=== PATIENT | female | born 1935 | race Caucasian/White ===

== ENCOUNTER 2019-06-15 18:31 | Emergency (ER) | payer MEDICARE, OTHER ==
[~2019-06-15] VITALS: Ht 167.6 cm; Wt 60.5 kg
[2019-06-15 18:37] VITALS: Ht 167.6 cm; Wt 60.5 kg
[2019-06-15 19:42] LABS: BASOPHILS 0.2 % (0-2); EOSINOPHILS 0 % (0-7); HEMATOCRIT 27.3 % (36.0-48.0); HEMOGLOBIN 8.9 g/dL (12-16); IMMATURE GRANULOCYTES 0.5 % (0-5); LYMPHOCYTES 21.9 % (15-50); MCH 30.6 pg (26.0-34.0); MCHC 32.6 g/dL (31.0-37.0); MCV 93.8 fL (80.0-100.0); MEAN PLATELET VOLUME 11.6 fL (7.4-10.4); MONOCYTES 8.1 % (2-11); NEUTROPHILS 69.3 % (40-80); PLATELET COUNT 239 10x3/uL (130-400); RBC 2.91 10x6/uL (4.00-5.40); RDW 14.6 % (11.5-14.5); WBC 18.4 10x3/uL (4.8-10.8)
[2019-06-15 19:58] LABS: ANION GAP 11.6 mmol/L (8-16); CALCIUM 9.7 mg/dL (8.5-10.1); CREATININE - SERUM 0.8 mg/dL (0.6-1.3); POTASSIUM - SERUM 3.6 mmol/L (3.5-5.1)
[2019-06-15 20:04] LABS: ALBUMIN 3.1 g/dL (3.4-5.0); BILIRUBIN - TOTAL 0.42 mg/dL (0.2-1.3); PROTEIN - SERUM 5.7 g/dL (6.4-8.2)
[2019-06-15 21:31] LABS: APPEARANCE CLEAR (CLEAR); COLOR YELLOW (YELLOW)
[2019-06-15 21:32] LABS: BILIRUBIN NEGATIVE (NEGATIVE); GLUCOSE NEGATIVE (NEGATIVE); KETONE NEGATIVE (NEGATIVE); NITRITE NEGATIVE (NEGATIVE); PROTEIN TRACE mg/dL (NEGATIVE); UROBILINOGEN NORMAL (NORMAL)
[2019-06-15 21:34] LABS: BACTERIA FEW /hpf (NEGATIVE); EPITHELIAL CELLS 0-5 /hpf (0-5); RED CELLS - URINE OCC /hpf (0-5); WHITE CELLS - URINE 0-5 /hpf (NEGATIVE)
[2019-06-15 21:47] LABS: CKMB 1.1 U/L (0.0-3.6); CREATINE KINASE 20 UL (21-215); MAGNESIUM - SERUM 2.1 mg/dL (1.8-2.4); PRO BNP 3536 pg/mL (0-450)
[2019-06-15 22:03] LABS: TROPONIN-I 0.182 ng/mL (0.000-0.060)
[2019-06-16 00:48] VITALS: BP 121/68
[2019-07-05 14:33] VITALS: Ht 167.6 cm; Wt 60.5 kg
== END 2019-06-16 00:48 | disposition other institution (70) ==
LOC: D.ER 18:31
PROVIDERS: Emergency Medicine; Family Medicine
DX: K92.2 Gastrointestinal hemorrhage, unspecified (principal); I11.0 Hypertensive heart disease with heart failure; I71.4 Abdominal aortic aneurysm, without rupture; I50.9 Heart failure, unspecified

== ENCOUNTER 2019-06-30 12:53 | Inpatient (IN) | payer MEDICARE, OTHER ==
[~2019-06-30] VITALS: Ht 167.6 cm; Wt 61.7 kg
[2019-06-30 14:10] LABS: BASOPHILS 0.2 % (0-2); EOSINOPHILS 0.3 % (0-7); HEMATOCRIT 28.1 % (36.0-48.0); HEMOGLOBIN 8.7 g/dL (12-16); IMMATURE GRANULOCYTES 0.2 % (0-5); LYMPHOCYTES 16.6 % (15-50); MCH 29.5 pg (26.0-34.0); MCV 95.3 fL (80.0-100.0); MEAN PLATELET VOLUME 10.8 fL (7.4-10.4); MONOCYTES 8.9 % (2-11); NEUTROPHILS 73.8 % (40-80); PLATELET COUNT 218 10x3/uL (130-400); RBC 2.95 10x6/uL (4.00-5.40); RDW 16.4 % (11.5-14.5)
[2019-06-30 14:22] LABS: CALC OSMOLALITY 279 mosm/kg (275-300); CALCIUM 9.2 mg/dL (8.5-10.1); CARBON DIOXIDE 28.5 mmol/L (21.0-32.0); CHLORIDE - SERUM 105 mmol/L (98-107); CREATININE - SERUM 0.6 mg/dL (0.6-1.3); GLUCOSE 85 mg/dL (74-106); POTASSIUM - SERUM 4.3 mmol/L (3.5-5.1); SODIUM 142 mmol/L (136-145); UREA NITROGEN 6 mg/dL (7-18); eGFR NON AFRICAN AMERICAN > 90 mL/min (90-120)
[2019-06-30 14:25] LABS: APTT 32.5 SECONDS (22.8-39.4); INR 1.53 (0.85-1.17); PROTIME 17.8 SECONDS (11.6-15.0)
[2019-06-30 14:46] LABS: ALBUMIN 3.1 g/dL (3.4-5.0); ALKALINE PHOSPHATASE 83 U/L (46-116); ALT (SGPT) 24 U/L (10-68); BILIRUBIN - TOTAL 0.72 mg/dL (0.2-1.3); CKMB 1.1 U/L (0.0-3.6); CREATINE KINASE 28 UL (21-215); PRO BNP 5453 pg/mL (0-450); PROTEIN - SERUM 5.6 g/dL (6.4-8.2)
[2019-06-30 14:53] LABS: TROPONIN-I 0.232 ng/mL (0.000-0.060)
--- NOTE | 2019-06-30 18:27 | NUR ---
URINE SAMPLE SENT TO LAB
[2019-06-30 18:36] LABS: APPEARANCE CLEAR (CLEAR); BILIRUBIN NEGATIVE (NEGATIVE); COLOR YELLOW (YELLOW); GLUCOSE NEGATIVE (NEGATIVE); KETONE NEGATIVE (NEGATIVE); NITRITE NEGATIVE (NEGATIVE); PROTEIN NEGATIVE (NEGATIVE); UROBILINOGEN NORMAL (NORMAL)
[2019-06-30 18:38] LABS: BACTERIA FEW /hpf (NEGATIVE); EPITHELIAL CELLS 0-5 /hpf (0-5); RED CELLS - URINE 0-5 /hpf (0-5)
--- NOTE | 2019-06-30 20:00 | NUR ---
RECEIVED REPORT FROM SMITA BEDOLLA. PATIENT ARRIVED VIA STRETCHER. PATIENT IS ALERT AND ORIENTED. RESPIRATIONS ARE EVEN AND UNLABORED. PATIENT REMAINS ON 3.5L NC. NO S/S OF DISTRESS. NO C/O PAIN. CALL LIGHT WITHIN REACH
[2019-06-30] MEDS ORDERED: PROTONIX40 MG PO (20:09)
[2019-06-30] MEDS ORDERED: FUROSEMIDE20 MG PO (20:09)
[2019-06-30] MEDS ORDERED: TOPROL XL50 MG PO (20:10)
[2019-06-30] MEDS ORDERED: CENTRUM SILVER1 EAC3 PO (20:11)
[2019-06-30] MEDS ORDERED: BAYER CHEWABLE81 MG PO (20:12)
[2019-06-30] MEDS ORDERED: EZFE 200200 MG PO (20:12)
[2019-06-30 23:06] VITALS: BP 125/53; BMI 21.8
[2019-07-01] VITALS: BP 119/71
[2019-07-01 04:30] VITALS: BP 111/72
[2019-07-01 06:34] LABS: BASOPHILS 0.2 % (0-2); EOSINOPHILS 1.7 % (0-7); HEMATOCRIT 29.1 % (36.0-48.0); HEMOGLOBIN 8.8 g/dL (12-16); IMMATURE GRANULOCYTES 0.3 % (0-5); LYMPHOCYTES 9.1 % (15-50); MCHC 30.2 g/dL (31.0-37.0); MEAN PLATELET VOLUME 11.2 fL (7.4-10.4); MONOCYTES 8.8 % (2-11); NEUTROPHILS 79.9 % (40-80); PLATELET COUNT 195 10x3/uL (130-400); RBC 3.03 10x6/uL (4.00-5.40); RDW 16.5 % (11.5-14.5)
[2019-07-01 06:45] LABS: WBC 6.5 10x3/uL (4.8-10.8)
[2019-07-01 07:01] LABS: CALC OSMOLALITY 283 mosm/kg (275-300); CALCIUM 8.4 mg/dL (8.5-10.1); CARBON DIOXIDE 33.7 mmol/L (21.0-32.0); CHLORIDE - SERUM 105 mmol/L (98-107); CREATININE - SERUM 0.6 mg/dL (0.6-1.3); GLUCOSE 83 mg/dL (74-106); MAGNESIUM - SERUM 2.1 mg/dL (1.8-2.4); PHOSPHOROUS 4.1 mg/dL (2.5-4.9); SODIUM 144 mmol/L (136-145); UREA NITROGEN 6 mg/dL (7-18); eGFR NON AFRICAN AMERICAN > 90 mL/min (90-120)
[2019-07-01 07:04] LABS: POTASSIUM - SERUM 3.2 mmol/L (3.5-5.1)
[2019-07-01 09:08] VITALS: BP 127/71
--- NOTE | 2019-07-01 12:15 | NUR ---
TELEMETRY CAF. RESP UL ON . UP IN CHAIR FOR LUNCH. CALL LIGHT IN REACH. WILL CONT. PLAN OF CARE.
[2019-07-01 12:27] VITALS: BP 112/50
[2019-07-01 16:00] LABS: CKMB 0.7 U/L (0.0-3.6); CREATINE KINASE 26 UL (21-215)
[2019-07-01 16:02] LABS: TROPONIN-I 0.148 ng/mL (0.000-0.060)
[2019-07-01 16:31] LABS: T4 THYROXIN - FREE 1.12 ng/dL (0.76-1.46); THYROID STIMULATING HORMONE 2.4 uIU/mL (0.36-3.74)
--- NOTE | 2019-07-01 16:44 | NUR ---
ELEVATED TROPONIN CALLED TO DR. RODRIGUEZ. EKG COMPLETED. WILL CONT. PLAN OF CARE.
[2019-07-01 17:19] VITALS: BP 114/63
--- NOTE | 2019-07-01 19:49 | NUR ---
RECEIVED BEDSIDE REPORT. PATIENT IS ALERT AND ORIENTED, RESTING COMFORTABLY IN BED. RESPIRATIONS ARE EVEN AND UNLABORED. NO S/S OF DISTRESS. NO C/O PAIN. CALL LIGHT WITHIN REACH. WILL CPOC.
[2019-07-01 20:35] LABS: CKMB 0.7 U/L (0.0-3.6); CREATINE KINASE 18 UL (21-215)
[2019-07-01 20:38] LABS: TROPONIN-I 0.136 ng/mL (0.000-0.060)
[2019-07-01 20:39] VITALS: BP 123/61
[2019-07-02 00:15] VITALS: BP 104/47
[2019-07-02 01:56] LABS: BASOPHILS 0.2 % (0-2); EOSINOPHILS 4.3 % (0-7); HEMOGLOBIN 7.8 g/dL (12-16); IMMATURE GRANULOCYTES 0.2 % (0-5); LYMPHOCYTES 16.6 % (15-50); MCH 28.7 pg (26.0-34.0); MCV 95.6 fL (80.0-100.0); MEAN PLATELET VOLUME 10.6 fL (7.4-10.4); MONOCYTES 11.4 % (2-11); NEUTROPHILS 67.3 % (40-80); PLATELET COUNT 157 10x3/uL (130-400); RBC 2.72 10x6/uL (4.00-5.40); RDW 15.9 % (11.5-14.5); WBC 5.6 10x3/uL (4.8-10.8)
--- NOTE | 2019-07-02 02:13 | NUR ---
PATIENT RESTING COMFORTABLY IN BED. RESPIRATIONS ARE EVEN AND UNLABORED. NO S/S OF DISTRESS. CALL LIGHT WITHIN REACH.
[2019-07-02 02:40] LABS: CALCIUM 8.3 mg/dL (8.5-10.1); CHLORIDE - SERUM 105 mmol/L (98-107); CKMB 0.4 U/L (0.0-3.6); CREATINE KINASE 23 UL (21-215); CREATININE - SERUM 0.6 mg/dL (0.6-1.3); GLUCOSE 95 mg/dL (74-106); MAGNESIUM - SERUM 2.1 mg/dL (1.8-2.4); PHOSPHOROUS 3.7 mg/dL (2.5-4.9); POTASSIUM - SERUM 3.9 mmol/L (3.5-5.1); SODIUM 144 mmol/L (136-145); UREA NITROGEN 8 mg/dL (7-18); eGFR NON AFRICAN AMERICAN > 90 mL/min (90-120)
[2019-07-02 02:41] LABS: CALC OSMOLALITY 284 mosm/kg (275-300); TROPONIN-I 0.137 ng/mL (0.000-0.060)
[2019-07-02 04:45] VITALS: BP 95/59
[2019-07-02 08:00] VITALS: BP 132/72
[2019-07-02 10:55] VITALS: BP 119/51
--- NOTE | 2019-07-02 15:15 | NUR ---
TELEMETRY CAF. NO NEEDS OR C/O VOICED. CALL LIGHT IN REACH. WILL MONITOR.
--- NOTE | 2019-07-02 16:43 | MORECARE ---
CASE MANAGEMENT DISCHARGE SUMMARY PATIENT: SVEN MICHAEL UNIT: [id number] ADM DATE: 06/30/19 AGE: 84 : 33 SEX: F ROOM/BED: D.2120 AUTHOR: PARESH GALO PHYSICIAN: REFERRING PHYSICIAN: ALEX LEE MD DATE OF SERVICE: 07/02/19 Discharge Plan Patient Name: SVEN MICHAEL Facility: [facility]:[place] : 1935 Planned Disposition: Anticipated Discharge Date: Discharge Date: Expected LOS: Initial Reviewer: [email or web address] Initial Review Date: 07/02/2019 Generated: 07/02/19 5:42 pm Comments DCP- Discharge Planning Updated by [id number]: Edin Rutherford on 07/02/19 3:[address] Patient Name: SVEN MICHAEL Encounter No: [id number] : 1935 Primary Insurance: MEDICARE A & B Anticipated DC Date: Planned Disposition: DISCHARGE PLANNING note: CM ATTEMPTED TO MEET WITH PT FOR INITIAL ASSESSMENT OF DISCHARGE NEEDS. PT WAS SLEEPING SOUNDLY WITH NO FAMILY PRESENT IN ROOM AT APPROXIMATELY 1635 HOURS. CM TO ATTEMPT ASSESSMENT OF PT AT A LATER TIME. Edin Rutherford, CASE MANAGEMENT Patient Name: SVEN MICHAEL Page [id number] at 1643 All edits/amendments must be made on the electronic document DICTATION DATE: 07/02/191641 GREIGE MENDER: SRINIVAS 07/02/19 164 RPT#: [id number] DC DATE: STATUS: ADM IN [place] [address] [place] [address] END OF REPORT
[2019-07-02 18:05] VITALS: BP 113/59
--- NOTE | 2019-07-02 19:23 | NUR ---
RECEIVED UP IN BED WITH EYES OPEN AND TV ON. ALERT AND ORIENTED X4. REQUIRES SBA WITH AMBULATION. O2@ 2 LITERS PER N/C. IV TO RIGHT WRIST SL. DENIES ANY NEEDS AT THIS TIME.
[2019-07-02 20:30] VITALS: BP 117/57
[2019-07-03] VITALS (7 sets, daily range): BP systolic 108–133; BP diastolic 52–66
[2019-07-03 05:27] LABS: BASOPHILS 0.2 % (0-2); EOSINOPHILS 2.6 % (0-7); HEMATOCRIT 26.4 % (36.0-48.0); HEMOGLOBIN 8.2 g/dL (12-16); IMMATURE GRANULOCYTES 0.2 % (0-5); LYMPHOCYTES 22.4 % (15-50); MCH 29.5 pg (26.0-34.0); MCHC 31.1 g/dL (31.0-37.0); MEAN PLATELET VOLUME 11.4 fL (7.4-10.4); NEUTROPHILS 66.6 % (40-80); PLATELET COUNT 149 10x3/uL (130-400); RBC 2.78 10x6/uL (4.00-5.40); RDW 15.8 % (11.5-14.5); WBC 5.8 10x3/uL (4.8-10.8)
[2019-07-03 06:03] LABS: CALC OSMOLALITY 282 mosm/kg (275-300); CALCIUM 8.6 mg/dL (8.5-10.1); CARBON DIOXIDE 34.3 mmol/L (21.0-32.0); CHLORIDE - SERUM 105 mmol/L (98-107); CREATININE - SERUM 0.6 mg/dL (0.6-1.3); GLUCOSE 110 mg/dL (74-106); MAGNESIUM - SERUM 2.1 mg/dL (1.8-2.4); PHOSPHOROUS 3.2 mg/dL (2.5-4.9); POTASSIUM - SERUM 3.6 mmol/L (3.5-5.1); SODIUM 142 mmol/L (136-145); UREA NITROGEN 10 mg/dL (7-18); eGFR NON AFRICAN AMERICAN > 90 mL/min (90-120)
--- NOTE | 2019-07-03 07:15 | NUR ---
RECEIVED PT IN BED AAOX4 RESP UNLABORED SKIN W/D DENIES ANY NEEDS OR DISCOMFORT AT THIS TIME
--- NOTE | 2019-07-03 19:25 | NUR ---
INITIAL ROUNDS COMPLETED. PT DENIES ANY DISCOMFORT. CALL LIGHT WITHIN REACH.
--- NOTE | 2019-07-03 23:02 | NUR ---
ASSESSMENT COMPLETED AT 1940 HRS. VSS. CAF PER CM HR 81. O2 2LNC. ALERT AND ORIENTED TO PERSON, PLACE AND TIME. BECKWITH. IV TO RAC AND R WRIST SL. LUGS DIMINISHED IN BASES BILAT. TYLENOL 650MG PO GIVEN AT 2014 FOR C/O LOWER BACK PAIN. PM MEDS IGVEN. IV TO R WRIST INFILTRATED. DC'D WITH CATHETER INTACT. PT CURRENTLY RESTING WITH EYES CLOSED. RESP EVEN AND REGULAR. SR UP X2, CALL LIGHT WITHIN REACH.
--- NOTE | 2019-07-04 01:19 | NUR ---
PT RESTING WITH EYES CLOSED. RESP EVEN AND REGULAR. SR UP X2, CALL LIGHT WITHIN REACH.
--- NOTE | 2019-07-04 03:16 | NUR ---
PT AWAKE; STATES BACK PAIN LESS. CALL LIGHT WITHIN REACH.
--- NOTE | 2019-07-04 04:08 | NUR ---
PT RESTING WITH EYES CLOSED. RESP EVEN AND REGULAR. SR UPX2, CALL LIGHT WITHIN REACH.
[2019-07-04 05:31] LABS: BASOPHILS 0.2 % (0-2); HEMATOCRIT 26.8 % (36.0-48.0); HEMOGLOBIN 8.2 g/dL (12-16); IMMATURE GRANULOCYTES 0.2 % (0-5); LYMPHOCYTES 14.1 % (15-50); MCH 28.8 pg (26.0-34.0); MCHC 30.6 g/dL (31.0-37.0); MONOCYTES 7.7 % (2-11); NEUTROPHILS 75.8 % (40-80); PLATELET COUNT 144 10x3/uL (130-400); RBC 2.85 10x6/uL (4.00-5.40); RDW 15.8 % (11.5-14.5); WBC 6.5 10x3/uL (4.8-10.8)
[2019-07-04 05:47] LABS: CALC OSMOLALITY 273 mosm/kg (275-300); CALCIUM 8.7 mg/dL (8.5-10.1); CARBON DIOXIDE 31.8 mmol/L (21.0-32.0); CHLORIDE - SERUM 103 mmol/L (98-107); CREATININE - SERUM 0.6 mg/dL (0.6-1.3); GLUCOSE 95 mg/dL (74-106); POTASSIUM - SERUM 3.8 mmol/L (3.5-5.1); SODIUM 138 mmol/L (136-145); UREA NITROGEN 8 mg/dL (7-18); eGFR NON AFRICAN AMERICAN > 90 mL/min (90-120)
--- NOTE | 2019-07-04 06:13 | NUR ---
VSS THROUGHOUT NIGHT. CAF PER CM. PT STASTED TYLENOL ALLEVIATES BACK PAIN. NEEDS MET; WILL CONTINUE TO MONITOR.
--- NOTE | 2019-07-04 07:28 | NUR ---
ALERT AND ORIENTED. DENIES ANY NEEDS. RIGHT AC SL, PATENT. O2 AT 2 L/M PER NC. LUNGS DIMISHED. TELEMERTY SHOWS AFIB.. SR UP WITH CALL LIGHT IN REAC
[2019-07-04 09:14] VITALS: BP 118/58
[2019-07-04 12:47] VITALS: BP 118/54
--- NOTE | 2019-07-04 13:37 | NUR ---
I have reviewed this patient and I concur with the Shift Assessment completed by the Licensed Practical Nurse today this shift.
--- NOTE | 2019-07-04 14:40 | NUR ---
VISITOR AT BEDSIDE, DENIES ANY NEEDS. WILL MONITOR
--- NOTE | 2019-07-04 15:15 | NUR ---
HUMIDIFICATION PLACED ON OXYGEN AT THIS TIME PER .
[2019-07-04 18:21] VITALS: BP 117/52
--- NOTE | 2019-07-04 19:17 | NUR ---
INITIAL ROUNDS COMPLETED. PT DENIES ANY DISCOMFORT. CALL LIGHT WITHIN REACH.
[2019-07-04 20:00] VITALS: BP 129/69
--- NOTE | 2019-07-04 22:21 | NUR ---
HIBICLENS SHOWER DONE, BED LINENS CHANGED AT 2000 HRS. PT TOLERATED ACTIVITY WELL. ASSESSMENT COMPLETED AT 2015 HRS. VSS. CAF PER CM HR 78. ALERT AND ORIENTED TO PERSON, PLACE AND TIME. BECKWITH. IV TO LFA SL. O2 2LNC. LUNGS DIMINISHED IN BASES BILAT. PETECHIA NOTED TO L LOWER LEG. PALPABLE PERIPHERAL PULSES. PM MEDS GIVEN INCLUDING TYLENOL 650 MG PO FOR C/O BACK ACHE 02/24. PT CURRENTLY RESTING WITH EYES CLOSED. RESP EVEN AND REGULAR. SR UP X2, CALL LIGHT WITHIN REACH.
[2019-07-05] VITALS: BP 128/61
--- NOTE | 2019-07-05 00:35 | NUR ---
PT RESTING WITH EYES CLOSED. RESP EVEN AND REGULAR. SR UP X2, CALL LIGHT WITHIN REACH.
--- NOTE | 2019-07-05 01:49 | NUR ---
PT RESTING WITH EYES CLOSED. RESP EVEN AND REGULAR. SR UP X2, CALL LIGHT WITHIN REACH.
--- NOTE | 2019-07-05 03:44 | NUR ---
PT STATES DOES NOT HAVE A BACKACHE AT THIS TIME. CALL LIGHT WITHIN REACH.
[2019-07-05 04:00] VITALS: BP 132/71
[2019-07-05 05:29] LABS: BASOPHILS 0.7 % (0-2); EOSINOPHILS 2.1 % (0-7); HEMATOCRIT 27.2 % (36.0-48.0); HEMOGLOBIN 8.3 g/dL (12-16); IMMATURE GRANULOCYTES 0.2 % (0-5); LYMPHOCYTES 22.5 % (15-50); MCH 28.7 pg (26.0-34.0); MCHC 30.5 g/dL (31.0-37.0); MCV 94.1 fL (80.0-100.0); MONOCYTES 10.7 % (2-11); NEUTROPHILS 63.8 % (40-80); PLATELET COUNT 128 10x3/uL (130-400); RBC 2.89 10x6/uL (4.00-5.40); RDW 15.8 % (11.5-14.5); WBC 5.3 10x3/uL (4.8-10.8)
[2019-07-05 05:49] LABS: CALC OSMOLALITY 281 mosm/kg (275-300); CALCIUM 8.9 mg/dL (8.5-10.1); CHLORIDE - SERUM 106 mmol/L (98-107); CREATININE - SERUM 0.5 mg/dL (0.6-1.3); GLUCOSE 93 mg/dL (74-106); SODIUM 142 mmol/L (136-145); UREA NITROGEN 9 mg/dL (7-18); eGFR NON AFRICAN AMERICAN > 90 mL/min (90-120)
--- NOTE | 2019-07-05 05:52 | NUR ---
VSS THROUGHOUT NIGHT. CAF PER CM. PT STATES TYLENOL ALLEVIATED LOPEZ. NEEDS MET; WILL CONTINUE TO MONITOR.
--- NOTE | 2019-07-05 09:28 | EC ---
PATIENT:SVEN MICHAEL DATE OF SERVICE: 06/30/19 SEX: F MEDICAL RECORD: [id number] DATE OF : [birth year] LOCATION:D.M2 D.212 AGE OF PATIENT: 84 ADMISSION DATE: 06/30/19 REFERRING PHYSICIAN: INTERPRETING PHYSICIAN: AUGIE ENRIQUEZ MD ECHOCARDIOGRAM REPORT ECHO CHARGES 4 ECHO COMPLETE Date: 07/01/19 CLINICAL DIAGNOSIS: CHF HX AVR ()BOVINE) 18 YEARS AGO. ECHOCARDIOGRAPHIC MEASUREMENTS (adult normal given) AC root (d.<3.7cm) cm LV Septum d (<1.2 cm> 1.3 cm Valve Excursion cm LV Septum (systole) 1.4 cm Left Atria (s.<4.0cm> 5.5 cm LVPW d(<1.2cm) 1.7 cm RV (d.<2.3cm) 3.5 cm LVPW (sytole) 1.9 cm LV diastole(<5.6CM) 5.2 cm MV E-F(>70mm/sec) cm LV systole 3.4 cm LVOT Diameter 1.4 cm MV exc.(>10mm) cm Est.ejection fraction (50-75%) % DOPPLER: LVIT cm/sec A 65.0 cm/sec E 147 cm/sec LA cm/sec RVSP 65 mmHg LVOT 216 cm/sec AOP1/2T m/s Asc. Ao 561 cm/sec RVOT cm/sec RA cm/sec PA cm/sec AV Gradient Peak 126 mmHg AV Mean 77.51mmHg AV Area 0.6 cm MV Gradient Peak 15.64mmHg MV Mean 5.08 mmHg MV Area cm COMMENTS: Fish And Wildlife Warden: Diana WILSON Furnace Checker: 1 Dr. Enriquez TAPE# PACS Pericardial Effusion N DATE OF SERVICE: 07/01/2019 FINDINGS: 1. Left ventricular chamber size is within normal limits. Left ventricular systolic function is normal at 65%. 2. Left ventricular hypertrophy is present, concentric with no evidence of outflow tract hypertrophy. 3. Left atrium is enlarged at 5.5 cm. Right atrium and right ventricular chamber sizes are as well mildly dilated. 4. 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 The remaining valvular structures have normal structure and motion. 5. Doppler interrogation elsewise reveals moderate mitral regurgitation, moderate tricuspid regurgitation, no other valvular insufficiency or stenosis. Pulmonary systolic pressure is estimated at 65 mmHg. 6. No evidence of pericardial effusion or left ventricular thrombus. TRANSINT:[id number] Voice Confirmation ID: [id number] DOCUMENT ID: [id number] AUGIE ENRIQUEZ MD at 0928 CC: [id number] DICTATION DATE: 07/01/19 1503 MANAGER BUSINESS PLANNING: 07/01/19 1629 ADM IN [facility] [address] [id number]
--- NOTE | 2019-07-05 09:37 | NUR ---
AM MEDS GIVEN AT THIS TIME. PT A/O X4, A LITTLE SOB ON 2L NC. INSTRUCTED PT TO TAKE IN DEEP BREATHS IN THROUGH HER NOSE AND OUT HER MOUTH. MONITOS SHOWING CAF WITH RATE OF 79. LT FA IV SL. ALSO GAVE 650MG OF TYLENOL FOR PAIN LEVEL OF 6/10. PT DENIES ANY OTHER NEEDS AT THIS TIME. CALL LIGHT IN REACH, NAD NOTED, WILL CONTINUE TO MONITOR.
[2019-07-05 11:13] VITALS: BP 131/71; BP 151/50
[2019-07-05 14:33] VITALS: Ht 167.6 cm; Wt 61.7 kg
[2019-07-05 14:57] VITALS: BP 131/62
[2019-07-05] MEDS ORDERED: TOPROL XL25 MG PO (15:38)
--- NOTE | 2019-07-05 15:43 | MORECARE ---
CASE MANAGEMENT DISCHARGE SUMMARY PATIENT: SVEN MICHAEL UNIT: [id number] ADM DATE: 06/30/19 AGE: 84 : 33 SEX: F ROOM/BED: D.2120 AUTHOR: PARESH GALO PHYSICIAN: REFERRING PHYSICIAN: ALEX LEE MD DATE OF SERVICE: 07/05/19 Discharge Plan Patient Name: SVEN MICHAEL Facility: [facility]:[place] : 1935 Planned Disposition: Anticipated Discharge Date: Discharge Date: Expected LOS: Initial Reviewer: [email or web address] Initial Review Date: 07/02/2019 Generated: 07/05/19 4:43 pm Comments DCP- Discharge Planning Updated by [id number]: Essie Marquez on 07/05/19 2:[address] @ 1308 SVEN JEWELL APN CAME TO DESK TO LET US KNOW THAT [facility] IS WORKING ON TRANSFERRING PATIENT. @1310, CALLED GRAEME HERANNDEZTABLE GAMES SUPERVISOR AND RECEIVED ADMIN AUTH UNDER DIANE FOR TRANSFER. @ 1530, SPOKE WITH LEVI AT THE TRANSFER CENTER. THE PATIENT HAS BEEN ACCEPTED TO [facility] IN [place]. DR ALVARO TELLEZ ACCEPTING. SHE WILL GO TO ROOM 917. REPORT TO BE CALLED TO [phone]. I HAVE LET THE QA ARCHITECT KNOW AND HAVE SENT A MESSAGE TO SVEN JEWELL APN SO WE CAN GET DISCHARGE ORDERS. DCP- Discharge Planning Updated by [id number]: Edin Rutherford on 07/02/19 3:[address] Patient Name: SVEN MICHAEL Encounter No: [id number] : 1935 Primary Insurance: MEDICARE A & B Anticipated DC Date: Planned Disposition: DISCHARGE PLANNING note: CM ATTEMPTED TO MEET WITH PT FOR INITIAL ASSESSMENT OF DISCHARGE NEEDS. PT WAS SLEEPING SOUNDLY WITH NO FAMILY PRESENT IN ROOM AT APPROXIMATELY 1635 HOURS. CM TO ATTEMPT ASSESSMENT OF PT AT A LATER TIME. Edin Rutherford CASE MANAGEMENT Last DP export: 07/02/19 3:43 Patient Name: SVEN MICHAEL Page [phone] at 1543 All edits/amendments must be made on the electronic document DICTATION DATE: 07/05/19 154 THIOKOL OPERATOR: SRINIVAS 07/05/19 154 RPT#: [id number] DC DATE: STATUS: ADM IN [facility] [address] [place] [address] END OF REPORT
--- NOTE | 2019-07-05 16:33 | NUR ---
REPORT CALLED TO KATELYNN BEDOLLA AT [facility] WHO WILL BE TAKING CARE OF PT.
--- NOTE | 2019-07-05 16:57 | NUR ---
CALLED [facility] AND SPOKE WITH LIANNE, WHO INFORMED THIS NURSE THAT IT WOULD BE ABOUT AN HOUR BEFORE THEY COULD COME PICK PT UP.
--- NOTE | 2019-07-05 17:03 | NUR ---
PROVIDED VERBAL AND WRITTEN DISCHARGE TEACHING TO PT, WHO VERBALIZED UNDERSTANDING REGARDING TEACHING.
--- NOTE | 2019-07-05 17:05 | MORECARE ---
CASE MANAGEMENT DISCHARGE SUMMARY PATIENT: SVEN MICHAEL UNIT: [id number] ADM DATE: 06/30/19 AGE: 84 : 33 SEX: F ROOM/BED: D.1344 AUTHOR: IRAJ,DOC PHYSICIAN: REFERRING PHYSICIAN: ALEX LEE MD DATE OF SERVICE: 07/05/19 Discharge Plan Patient Name: SVEN MICHAEL Facility: [facility]:[place] : 1935 Planned Disposition: Acute Care Hospital Anticipated Discharge Date: 07/05/19 Discharge Date: Expected LOS: 5 Initial Reviewer: [email or web address] Initial Review Date: 07/02/2019 Generated: 07/05/19 6:04 pm Comments DCP- Discharge Planning Updated by [email or web address]: Edin Rutherford on 07/05/19 4:[address] Patient Name: SVEN MICHAEL Admission Status: ER Accout number: [id number] Admission Date: 06-30-2019 : 1935 Admission Diagnosis: Attending: ALEX LEE Current LOS: 5 Anticipated DC Date: 07-05-2019 Planned Disposition: Acute Care Hospital Primary Insurance: MEDICARE A & B PLANNED EXERNAL PROVIDER: [facility] Discharge Planning Comments: CM SPOKE TO GWEN JEWELL DURING MULTIDISCIPLINARY TEAM MEETING, NOTES INDICATED PT WILL TRANSFER FOR "TAVR" AT [facility]. CM MET WITH PT IN ROOM TO DISCUSS DISCHARGE PLANNING AND NEEDS. PT REPORTS LIVING AT HOME INDEPENDENTLY AND ALONE. PT HAS WALKER WITH SEAT AND CANE WITH NO MEDICAL EQUIPMENT PROVIDER PREFERENCE. PT HAS HOME HEALTH WITH [facility], BUT THEY DID NOT ADMIT DUE TO PT ADMITTING BACK TO THE HOSPITAL. PT HAS NO OTHER OUTSIDE SERVICES ASSISTING IN THE HOME. CM DISCUSSED AVAILABILITY OF HOME HEALTH, REHAB SERVICES AND MEDICAL EQUIPMENT. PT DENIES DISCHARGE NEEDS AND IS WILLING FOR TRANSFER TO [facility] AND HAS DISCUSSED THIS WITH HER DOCTOR. CM SPOKE TO GRAEME DASH WHO INFORMED CM THAT PT HAS BEEN ACCEPTED AT [facility] AND HAS BED NOW. CM NOTIFIED PT WHO ASKED CM TO CALL HER NIECE, DIRK MICHAEL. CM CALLED AND NOTIFIED DIRK WHO INFORMED CM THAT SHE WILL BE RIGHT UP TO HELP PT GET HER BELONGINGS GATHERED UP FOR TRANSFER TO [facility]. Roll Carrier: Edin Rutherford DCP- Discharge Planning Updated by [id number]: Essie Dash on 07/05/19 2:[address] @ 1308 SVEN JEWELL APN CAME TO DESK TO LET US KNOW THAT [facility] IS WORKING ON TRANSFERRING PATIENT. @1310, CALLED GRAEME HERNANDEZCRATING AND MOVING ESTIMATOR AND RECEIVED ADMIN AUTH UNDER DIANE FOR TRANSFER. @ 1530, SPOKE WITH LEVI AT THE TRANSFER CENTER. THE PATIENT HAS BEEN ACCEPTED TO [facility] IN [place]. DR ALVARO TELLEZ ACCEPTING. SHE WILL GO TO ROOM 917. REPORT TO BE CALLED TO [phone]. I HAVE LET THE RESEARCH INSTRUCTOR KNOW AND HAVE SENT A MESSAGE TO SVEN JEWELL APN SO WE CAN GET DISCHARGE ORDERS. DCP- Discharge Planning Updated by [id number]: Edin Rutherford on 07/02/19 3:[address] Patient Name: SVEN MICHAEL Encounter No: [id number] : 1935 Primary Insurance: MEDICARE A & B Anticipated DC Date: Planned Disposition: DISCHARGE PLANNING note: CM ATTEMPTED TO MEET WITH PT FOR INITIAL ASSESSMENT OF DISCHARGE NEEDS. PT WAS SLEEPING SOUNDLY WITH NO FAMILY PRESENT IN ROOM AT APPROXIMATELY 1635 HOURS. CM TO ATTEMPT ASSESSMENT OF PT AT A LATER TIME. Edin Rutherford, CASE MANAGEMENT DCPIA - Discharge Planning Initial Assessment Updated by [email or web address]: Edin Rutherford on 07/05/19 4:59 pm * Is the patient Alert and Oriented? Yes * How many steps to enter\\exit or inside your home? NONE * PCP DR. MARLIN PELLETIER IN [place] * Pharmacy [facility] IN [place] OR [facility] * Preadmission Environment Home Alone * ADLs Independent * Equipment Cane Rolling Walker * Other Equipment NO MEDICAL EQUIPMENT PROVIDER PREFERENCE * List name and contact numbers for known caregivers / representatives who currently or will assist patient after discharge: MARAL LUIS, * Verbal permission to speak to the caregivers and representatives has been obtained from the patient. Yes * Community resources currently utilized Home Health * Please name any agencies selected above. [facility] NEVER ADMITTED DUE TO RE HOSPITALIZATION. * Additional services required to return to the preadmission environment? No * Can the patient safely return to the preadmission environment? Yes * Has this patient been hospitalized within the prior 30 days at any hospital? Yes Last DP export: 07/05/19 2:43 Patient Name: SVEN MICHAEL Page 35228 at 1705 All edits/amendments must be made on the electronic document DICTATION DATE: 07/05/191703 PUBLIC RELATIONS PROFESSIONAL: SRINIVAS 07/05/191703 RPT#: [id number] DC DATE: STATUS: ADM IN [facility] [address] [place] [address] END OF REPORT
--- NOTE | 2019-07-05 17:35 | NUR ---
RECEIVED CALL FROM LIFE PRINCIPAL TECHNICAL WRITER WHO STATED THAT [facility] WOULD TRANSFER PT TO [facility], DUE TO THEM HAVING A LOT OF EMERGENCIES. [facility] WILL BE HERE IN ABOUT 45MIN.
--- NOTE | 2019-07-05 19:22 | NUR ---
[facility] HERE TO TRANSPORT TO [facility] IN [place]. IV INTACT AND O2 PER N/C IN PLACE. ALERT AND ORIENTED X4. PAPERWORK GIVEN TO AMBULANCE. AND COPIES GIVEN TO PT.
== END 2019-07-05 19:25 | disposition short-term general hospital (02) | DRG 314 ==
LOC: D.ER 12:53 → D.M2 18:50 → D.SDCHOLD 07-01 14:43 → D.M2 07-01 14:43
PROVIDERS: Family Medicine; ADMIT Internal Medicine Nephrology; ATTEND Internal Medicine Nephrology
DX: T82.857A Stenosis of other cardiac prosthetic devices, implants and grafts, initial encounter (principal); J96.21 Acute and chronic respiratory failure with hypoxia; I50.23 Acute on chronic systolic (congestive) heart failure; J98.11 Atelectasis; D62 Acute posthemorrhagic anemia; N17.9 Acute kidney failure, unspecified; I11.0 Hypertensive heart disease with heart failure; I71.2 Thoracic aortic aneurysm, without rupture; E87.6 Hypokalemia; I08.3 Combined rheumatic disorders of mitral, aortic and tricuspid valves; D64.9 Anemia, unspecified; Y83.9 Surgical procedure, unspecified as the cause of abnormal reaction of the patient, or of later complication, without mention of misadventure at the time of the procedure